=== PATIENT | male | born 1955 | race Two or more races ===

== ENCOUNTER 2018-06-21 05:44 | Emergency (ER) | payer OTHER ==
[2018-06-21 06:00] VITALS: TEMP 98.9; BMI 27.2
[2018-06-21 06:28] LABS: BASO % 0.4 % (0-2.0); EOS % 4.1 % (0-4.5); HEMATOCRIT 42.6 % (35.4-49); HEMOGLOBIN 14.1 GM/dL (11.7-16.9); LYMPH % 31.5 % (8-40); MCH 27.1 pg (25.7-33.7); MCHC 33.1 g/dl (32.0-35.9); MEAN CELL VOLUME 81.8 fl (80-96); MEAN PLT VOLUME 8.4 fl (7.5-11.1); MONO % 11.6 % (3.8-10.2); NEUT % 52.4 % (42.8-82.8); PLATELET COUNT 140 K/MM3 (134-434); RBC 5.21 M/mm3 (4.00-5.60); RDW 15.2 % (11.9-15.9); WHITE BLOOD COUNT 5.1 K/mm3 (4.0-10.0)
[2018-06-21] MEDS ORDERED: ONDANSETRON 4 MG TABLET PO ONE (06:48)
[2018-06-21] MEDS ORDERED: MECLIZINE HCL 25 MG TABLET (FP) PO ONE ×2 (06:48→07:27)
[2018-06-21] MEDS ORDERED: ONDANSETRON *ODT* 4 MG TABLET SL ONE (06:48)
[2018-06-21 06:49] LABS: ALBUMIN 3.5 g/dl (3.4-5.0); ANION GAP 7 MMOL/L (8-16); BILIRUBIN,TOTAL 0.3 mg/dL (0.2-1.0); BLOOD UREA NITROGEN 15 mg/dL (7-18); CALCIUM 8.4 mg/dL (8.5-10.1); CHLORIDE 106 mmol/L (98-107); CO2 27 mmol/L (21-32); GLUCOSE,RANDOM 145 mg/dL (74-106); LIPASE 192 U/L (73-393); POTASSIUM 3.6 mmol/L (3.5-5.1); SGOT/AST 25 U/L (15-37); SGPT/ALT 40 U/L (13-61); SODIUM 140 mmol/L (136-145); TOT PROT 7.4 g/dl (6.4-8.2)
[2018-06-21] MEDS ORDERED: ONDANSETRON *ODT* 4 MG TABLET ONE (06:51)
[2018-06-21 06:52] LABS: ALK PHOS 109 U/L (45-117)
--- NOTE | 2018-06-21 07:11 | PDOC ---
History of Present Illness - General Chief Complaint: Nausea/Vomiting Stated Complaint: NAUSEA;DIZZINESS Time Seen by Provider: 06/21/18 07:09 - History of Present Illness Initial Comments: 06/21/18 07:49 The patient is a 62 year old male with a history of GERD who presents for evaluation of dizziness and nausea. The patient is accompanied by family who assist in providing the history. They note that the patient woke up with severe dizziness and feeling unsteady when walking with associated severe nausea 3 hours prior to presentation to the ED for further evaluation. The patient received meclazine and zofran on arrival to the ED and reports improvement in his symptoms on exam. He denies similar symptoms in the past and otherwise denies fevers, chills, SOB, chest pain, vomiting, abdominal pain, numbness, tingling, weakness, or changes with urination or bowel movements. Past History - Past Medical History Allergies/Adverse Reactions: Allergies Allergy/AdvReac Type Severity Reaction Status Date / Time No Known Allergies Allergy Verified 06/21/18 06:57 Home Medications: Ambulatory Orders Famotidine [Pepcid -] 20 mg PO DAILY #14 tablet 06/21/18 Meclizine HCl [Antivert -] 25 mg PO DAILY PRN #14 tablet 06/21/18 Ondansetron [Zofran Odt -] 4 mg SL TID PRN #21 od.tablet 06/21/18 Ranitidine [Zantac -] 150 mg PO DAILY #14 tablet 06/21/18 COPD: No Other medical history: denies - Suicide/Smoking/Psychosocial Hx Smoking History: Unknown if ever smoked Have you smoked in the past 12 months: No Information on smoking cessation initiated: No Hx Alcohol Use: No Drug/Substance Use Hx: No Review of Systems - Review of Systems Comments:: 06/21/18 07:52 Constitutional: No fevers, chills, fatigue, malaise HEENT: No Rhinorrhea, nasal congestion, visual changes Cardiovascular: No chest pain, syncope, palpitations, lightheadedness Respiratory: No Cough, SOB, Hemoptysis, Gastrointestinal: Nausea. No Abdominal pain, Vomiting, Constipation, Diarrhea, Melena Genitourinary: No Dysuria, Frequency, Urgency, Hesitancy, Hematuria, Flank pain Musculoskeletal: No Myalgia, arthralgia Skin: No rashes, itching, bruising, pallor Neurologic: Dizziness, No Headache, Numbness, Weakness, or Tingling Psychiatric: No Hallucinations. No SI or HI *Physical Exam - Vital Signs Last Vital Signs Temp Pulse Resp BP Pulse Ox 98.9 F 86 20 124/72 99 06/21/18 05:58 06/21/18 05:58 06/21/18 05:58 06/21/18 05:58 06/21/18 05:58 - Physical Exam Comments: 06/21/18 07:52 General Appearance: Nourished. No Apparent Distress HEENT: EOMI, NATALYA. No Pharyngeal Erythema, Tonsillar Exudate, Tonsillar Erythema Neck: No Cervical Lymphadenopathy Respiratory/Chest: Lungs Clear, Normal Breath Sounds. No Crackles, Rales, Rhonchi, Wheezing Cardiovascular: Regular Rhythm, Regular Rate. No Murmur, Gallops, Rubs Gastrointestinal/Abdominal: Normal Bowel Sounds, Soft. No Guarding, Rebound, Tenderness Musculoskeletal: No CVA Tenderness Extremity: Normal Capillary Refill Integumentary: Normal Color, Dry, Warm Neurologic: parquetry floor layer II-XII NML intact, Fully Oriented, Alert, Normal Mood/Affect, Normal Response, Motor Strength 5/5, Normal Finger to nose and heel to de [place] Heart Score/ECG Review #1 ECG reviewed & interpreted by me at: 07:53 General ECG Interpretation: Sinus Rhythm, Normal Rate, Normal Intervals, No acute ischemic changes ED Treatment Course - LABORATORY CBC & Chemistry Diagram: 06/21/18 06:11 06/21/18 06:11 - ADDITIONAL ORDERS Additional order review: Laboratory Results 06/21/18 06:11 Sodium 140 Potassium 3.6 Chloride 106 Carbon Dioxide 27 Anion Gap 7 L BUN 15 Creatinine 1.0 Creat Clearance w eGFR > 60 Random Glucose 145 H Calcium 8.4 L Total Bilirubin 0.3 AST 25 ALT 40 Alkaline Phosphatase 109 Creatine Kinase 138 Troponin I < 0.02 Total Protein 7.4 Albumin 3.5 Lipase 192 06/21/18 06:11 RBC 5.21 MCV 81.8 MCHC 33.1 RDW 15.2 MPV 8.4 Neutrophils % 52.4 Lymphocytes % 31.5 Monocytes % 11.6 H Eosinophils % 4.1 Basophils % 0.4 - Medications Given in the ED: ED Medications Discontinued Medications Generic Name Dose Route Start Last Admin Trade Name Freq PRN Reason Stop Dose Admin Meclizine HCl 25 mg 06/21/18 06:48 06/21/18 06:59 Antivert - PO 06/21/18 06:49 25 mg ONCE ONE Administration Ondansetron HCl 4 mg 06/21/18 06:48 06/21/18 06:59 Zofran - PO 06/21/18 06:49 4 mg ONCE ONE Administration Medical Decision Making - Medical Decision Making 06/21/18 07:58 The patient is a 62 year old male with a history of GERD who presents for evaluation of dizziness and nausea. Differential includes but is not limited to : ACS, Vertigo, Infectious, Metabolic Derangement. Given the patient's history and physical exam, it is likely the patient's symptoms are due to vertigo. However we will obtain a cbc, cmp, troponin, ekg, chest plain film, ua to evaluate further. We will treat with iv fluids, meclazine, pepcid and continue to monitor and reassess while here in the ED. 06/21/18 10:29 CBC, cmp, troponin are unremarkable. Repeat troponin is unremarkable. Chest plain film is unremarkable. UA is unremarkable. The patient reports significant improvement in his symptoms. We are comfortable discharging the patient home with primary care provider follow up on pepcid, zofran, zantac, and meclazine. We discussed the results, plan, and return precautions with the patient who voiced understanding and is agreeable with the plan. *DC/Admit/Observation/Transfer Diagnosis at time of Disposition: Dizziness - Discharge Dispostion Disposition: HOME Condition at time of disposition: Stable Decision to Admit order: No - Prescriptions Prescriptions: Famotidine [Pepcid -] 20 mg PO DAILY #14 tablet Meclizine HCl [Antivert -] 25 mg PO DAILY PRN #14 tablet PRN Reason: Dizziness Ondansetron [Zofran Odt -] 4 mg SL TID PRN #21 od.tablet PRN Reason: Nausea Ranitidine [Zantac -] 150 mg PO DAILY #14 tablet - Referrals Referrals: Hilario Lance [Primary Care Provider] - Leon Moss MD [Staff Physician] - - Patient Instructions Printed Discharge Instructions: DI for Vertigo Additional Instructions: Please return to the ER if you experience concerning or worsening symptoms including worsening difficulty breathing, weakness, or chest pain. Your lab results were normal here in the ER. Please call to schedule a follow up appointment with your primary care provider within 2-3 days to discuss your ER visit and further management of your symptoms. Print Language: THAI - Post Discharge Activity
[2018-06-21] MEDS ORDERED: FAMOTIDINE 20 MG/50 ML IVPB 20 MG/50 ML MG IVPB ONE ×2 (07:18→07:24)
[2018-06-21] MEDS ORDERED: SODIUM CHLORIDE 1,000 ML IV STA (07:18)
[2018-06-21] MEDS ORDERED: MECLIZINE HCL 25 MG TABLET (FP) ONE (07:41)
--- NOTE | 2018-06-21 07:44 | PDOC ---
Attending Attestation - Resident Resident Name: Lane Sutherland - ED Attending Attestation I have performed the following: I have examined & evaluated the patient, The case was reviewed & discussed with the resident, I agree w/resident's findings & plan, Exceptions are as noted - HPI HPI: 06/21/18 08:05 62-year-old male with history of gastritis presents with epigastric pain with nausea and lightheadedness. Patient reported history of eating cake yesterday. With the bed feeling well. Woke up at 4:30 this morning with epigastric dull sensation with nausea. Denied any fevers or chills or diarrhea. Denies chest pain or shortness of breath or dyspnea on exertion. Patient stated that the symptoms made him feel lightheaded and dizzy. Denies headache. Denies prior cardiac history. Patient reports that he suffers from heartburn. - Physicial Exam PE: 06/21/18 08:06 GENERAL: Awake, alert, and fully oriented, in no acute distress HEAD: No signs of trauma EYES: EOMI, sclera anicteric, conjunctiva clear ENT: Auricles normal inspection, hearing grossly normal, Moist mucosa NECK: Normal ROM, suppl LUNGS: Breath sounds equal, clear to auscultation bilaterally. No wheezes, and no crackles HEART: Regular rate and rhythm, normal S1 and S2, no murmurs, rubs or gallops ABDOMEN: Soft, No guarding, no rebound. No masses. TTP epigastric. Silveira sign negative. EXTREMITIES: Normal range of motion, no edema. No clubbing or cyanosis. No cords, erythema, or tenderness NEUROLOGICAL: Cranial nerves II through XII grossly intact. Normal speech, normal gait SKIN: Warm, Dry, normal turgor, no rashes or lesions noted. - Medical Decision Making 06/21/18 08:08 Vital Signs Temp Pulse Resp BP Pulse Ox 98.9 F 86 20 124/72 99 06/21/18 05:58 06/21/18 05:58 06/21/18 05:58 06/21/18 05:58 06/21/18 05:58 I suspect the patient is likely having gastritis. Blood work was examined by me and demonstrates normal liver function tests, normal lipase and normal troponin. EKG is reassuring. I have low suspicion for acute coronary syndrome. We'll trial GERD medications and IV fluids and reassess. We'll obtain a second troponin. If the second troponin is negative the patient reports feeling better , he can be discharged with a proton pump inhibitor and follow up with his primary care physician. 06/21/18 10:10 CBC, BMP 06/21/18 06:11 06/21/18 06:11 CMP Sodium 140 mmol/L (136-145) 06/21/18 06:11 Potassium 3.6 mmol/L (3.5-5.1) 06/21/18 06:11 Chloride 106 mmol/L (98-107) 06/21/18 06:11 Carbon Dioxide 27 mmol/L (21-32) 06/21/18 06:11 Anion Gap 7 MMOL/L (8-16) L 06/21/18 06:11 BUN 15 mg/dL (7-18) 06/21/18 06:11 Creatinine 1.0 mg/dL (0.55-1.3) 06/21/18 06:11 Creat Clearance w eGFR > 60 (>60) 06/21/18 06:11 Random Glucose 145 mg/dL (74-106) H 06/21/18 06:11 Calcium 8.4 mg/dL (8.5-10.1) L 06/21/18 06:11 Total Bilirubin 0.3 mg/dL (0.2-1.0) 06/21/18 06:11 AST 25 U/L (15-37) 06/21/18 06:11 ALT 40 U/L (13-61) 06/21/18 06:11 Alkaline Phosphatase 109 U/L (45-117) 06/21/18 06:11 Creatine Kinase 138 IU/L (26-308) 06/21/18 06:11 Troponin I < 0.02 ng/ml (0.00-0.05) 06/21/18 09:21 Total Protein 7.4 g/dl (6.4-8.2) 06/21/18 06:11 Albumin 3.5 g/dl (3.4-5.0) 06/21/18 06:11 Lipase 192 U/L (73-393) 06/21/18 06:11 Urine Test Results Urine Color Yellow 06/21/18 07:50 Urine Appearance Clear 06/21/18 07:50 Urine pH 6.0 (5.0-8.0) 06/21/18 07:50 Ur Specific [place] 1.019 (1.001-1.035) 06/21/18 07:50 Urine Protein Negative (NEGATIVE) 06/21/18 07:50 Urine Glucose (UA) Negative (NEGATIVE) 06/21/18 07:50 Urine Ketones Negative (NEGATIVE) 06/21/18 07:50 Urine Blood Negative (NEGATIVE) 06/21/18 07:50 Urine Nitrite Negative (NEGATIVE) 06/21/18 07:50 Urine Bilirubin Negative (<2.0 mg/dL) 06/21/18 07:50 Ur Leukocyte Esterase Negative (NEGATIVE) 06/21/18 07:50 Two trop negative. Heart Score/ECG Review #1 ECG reviewed & interpreted by me at: 06:25 06/21/18 07:43 NSR 78, no std/edgardo, normal axis, normal intervals, QTC 433 msec
[2018-06-21 07:58] LABS: URINE APPEARANCE CLEAR; URINE BILIRUBIN NEGATIVE (<2.0 mg/dL); URINE COLOR YELLOW; URINE GLUCOSE (UA) NEGATIVE (NEGATIVE); URINE KETONE NEGATIVE (NEGATIVE); URINE LEUK ESTERASE NEGATIVE (NEGATIVE); URINE NITRITE NEGATIVE (NEGATIVE); URINE PROTEIN NEGATIVE (NEGATIVE); URINE UROBILINOGEN NEGATIVE mg/dL (0.2-1.0)
[2018-06-21 09:30] VITALS: BP 121/78; PULSE 70
--- NOTE | 2018-06-21 21:13 | EKG ---
Test Reason : Blood Pressure : / mmHG Vent. Rate : 078 BPM Atrial Rate : 078 BPM P-R Int : 174 ms QRS Dur : 094 ms QT Int : 380 ms P-R-T Axes : 044 042 036 degrees QTc Int : 433 ms NORMAL SINUS RHYTHM WITH SINUS ARRHYTHMIA NORMAL ECG NO PREVIOUS ECGS AVAILABLE Confirmed by KEITH PRUETT MD ([id number]) on 06/21/2018 9:13:06 PM Referred By: Confirmed By:KEITH PRUETT MD
== END 2018-06-21 10:22 | disposition home or self-care (01) ==
LOC: JER 05:44
PROC: 3E033GC Introduction of Other Therapeutic Substance into Peripheral Vein, Percutaneous Approach (ICD-10-PCS; principal; 2018-06-21)
PROC: 3E0337Z Introduction of Electrolytic and Water Balance Substance into Peripheral Vein, Percutaneous Approach (ICD-10-PCS; 2018-06-21)
DX: R42 Dizziness and giddiness (principal)
CPT/HCPCS: 36415; 71045-TC-FY; 80053; 81003; 82550; 83690; 84484; 85025; 93005; 93010; 96361; 96365; 99284-25; J7030

== ENCOUNTER 2018-11-05 10:46 | Emergency (ER) | payer OTHER ==
[2018-11-05 11:04] VITALS: BP 133/82; PULSE 88; TEMP 98.2; BMI 27.4
[2018-11-05] MEDS ORDERED: ONDANSETRON *ODT* 4 MG TABLET SL ONE (11:56)
[2018-11-05] MEDS ORDERED: IBUPROFEN 400 MG TABLET (FP) PO ONE ×2 (11:56→12:03)
--- NOTE | 2018-11-05 11:56 | PDOC ---
History of Present Illness - General Chief Complaint: Nausea Stated Complaint: COLD SYMPTOMS Time Seen by Provider: 11/05/18 11:24 History Source: Patient Exam Limitations: No Limitations - History of Present Illness Initial Comments: 11/05/18 12:49 Patient is 63-year-old male who presents to the ER for one episode of chills and nausea. Patient states that he felt his body go cold. He also admits to a brief episode of nausea where he didn't want to eat his breakfast. Patient reports relief of symptoms and the emergency department at this time. Denies fevers, chills, sore throat, earache, vomiting, constipation and diarrhea. Past History - Travel Traveled outside of the country in the last 30 days: No Close contact w/someone who was outside of country & ill: No - Past Medical History Allergies/Adverse Reactions: Allergies Allergy/AdvReac Type Severity Reaction Status Date / Time No Known Allergies Allergy Verified 11/05/18 11:01 Home Medications: Ambulatory Orders Ibuprofen 800 mg PO TID #30 tablet 11/05/18 Ondansetron [Zofran Odt -] 4 mg SL TID #10 od.tablet 11/05/18 COPD: No - Suicide/Smoking/Psychosocial Hx Smoking History: Never smoked Have you smoked in the past 12 months: No Hx Alcohol Use: No Drug/Substance Use Hx: No Review of Systems - Review of Systems Able to Perform ROS?: Yes Comments:: 11/05/18 12:52 CONSTITUTIONAL: Present: chills Absent: fever, diaphoresis, generalized weakness, malaise, loss of appetite HEENT: Absent: rhinorrhea, nasal congestion, throat pain, throat swelling, difficulty swallowing, mouth swelling, ear pain, eye pain, visual Changes CARDIOVASCULAR: Absent: chest pain, loss of consciousness, palpitations, irregular heart rate, peripheral edema RESPIRATORY: Absent: cough, shortness of breath, dyspnea with exertion, orthopnea, wheezing, stridor, hemoptysis GASTROINTESTINAL: Present: nausea Absent: abdominal pain, abdominal distension, vomiting, diarrhea , constipation, melena, hematochezia GENITOURINARY: Absent: dysuria, frequency, urgency, hesitancy, hematuria, flank pain, genital pain MUSCULOSKELETAL: Absent: myalgia, arthralgia, joint swelling SKIN: Absent: rash, itching, pallor HEMATOLOGIC/IMMUNOLOGIC: Absent: easy bleeding, easy bruising, lymphadenopathy, frequent infections ENDOCRINE: Absent: unexplained weight gain, unexplained weight loss, heat intolerance, cold intolerance NEUROLOGIC: Absent: headache, focal weakness or paresthesias, dizziness, unsteady gait, seizure, mental status changes, bladder or bowel incontinence PSYCHIATRIC: Absent: anxiety, depression, suicidal or homicidal ideation, hallucinations. Is the patient limited [employer] proficient: No *Physical Exam - Vital Signs Last Vital Signs Temp Pulse Resp BP Pulse Ox 98.2 F 88 16 133/82 100 11/05/18 11:03 11/05/18 11:03 11/05/18 11:03 11/05/18 11:03 11/05/18 11:03 - Physical Exam Comments: 11/05/18 12:52 GENERAL: Well developed, well nourished. Awake and alert. No acute distress. HEENT: Normocephalic, atraumatic. PERRLA, EOMI. No conjunctival pallor. Sclera are non- icteric. Moist mucous membranes. Oropharynx is clear. NECK: Supple. Full ROM. No JVD. Carotid pulses 2+ and symmetric, without bruits. No thyromegaly. No lymphadenopathy. CARDIOVASCULAR: Regular rate and rhythm. No murmurs, rubs, or gallops. Distal pulses are 2+ and symmetric. PULMONARY: No evidence of respiratory distress. Lungs clear to auscultation bilaterally. No wheezing, rales or rhonchi. ABDOMINAL: Soft. Non-tender. Non-distended. No rebound or guarding. No organomegaly. Normoactive bowel sounds. MUSCULOSKELETAL Normal range of motion at all joints. No bony deformities or tenderness. No CVA tenderness. EXTREMITIES: No cyanosis. No clubbing. No edema. No calf tenderness. SKIN: Warm and dry. Normal capillary refill. No rashes. No jaundice. NEUROLOGICAL: Alert, awake, appropriate. Cranial nerves 2-12 intact. No deficits to light touch and temperature in face, upper extremities and lower extremities. No motor deficits in the in face, upper extremities and lower extremities. Normoreflexic in the upper and lower extremities. Normal speech. Toes are down- going bilaterally. Gait is normal without ataxia. PSYCHIATRIC: Cooperative. Good eye contact. Appropriate mood and affect. Moderate Sedation - Procedure Monitoring Vital Signs: Procedure Monitoring Vital Signs Temperature 98.2 F 11/05/18 11:03 Pulse Rate 88 11/05/18 11:03 Respiratory Rate 16 11/05/18 11:03 Blood Pressure 133/82 11/05/18 11:03 O2 Sat by Pulse Oximetry (%) 100 11/05/18 11:03 Medical Decision Making - Medical Decision Making 11/05/18 19:51 Patient is 63-year-old male who presents for one episode of nausea and chills starting this morning. Abdominal exam is benign. Rapid flu ordered given body aches, chills and nausea; it is negative at this time. Zofran given with relief of nausea. Patient reports chills after drinking cold water. Suggested most likely a viral illness and to drink warm supportive fluids to help with his symptoms. Patient's follow up with his primary care doctor. Discharge home I discussed the physical exam findings, ancillary test results and final diagnoses with the patient. I answered all of the patient's questions. The patient was satisfied with the care received and felt comfortable with the discharge plan and treatment plan. The Patient agrees to follow up with the primary care physician/specialist within 24-72 hours. Return precautions were given. *DC/Admit/Observation/Transfer Diagnosis at time of Disposition: Gastroenteritis - Discharge Dispostion Disposition: HOME Condition at time of disposition: Stable Decision to Admit order: No - Prescriptions Prescriptions: Ibuprofen 800 mg PO TID #30 tablet Ondansetron [Zofran Odt -] 4 mg SL TID #10 od.tablet - Referrals Referrals: Fletcher Encinas MD [Staff Physician] - - Patient Instructions Printed Discharge Instructions: DI for Viral Gastroenteritis -- Adult Additional Instructions: You have nausea. Your flu test was negative today Avoid all dairy products until 48 hours after the vomiting/diarrhea has resolved. Eat a bland diet including warm soup, tea, apple sauce, toast, bananas, and plain rice Drink plenty of fluids including pedialyte, watered down juices and water Follow up with your primary care doctor this week Return to the ED if you develop fevers, abdominal pain, worsening vomiting, or if you have any changes in your symptoms. - Post Discharge Activity Forms/Work/School Notes: Back to Work
[2018-11-05] MEDS ORDERED: ONDANSETRON *ODT* 4 MG TABLET ONE (12:04)
== END 2018-11-05 13:01 | disposition home or self-care (01) ==
LOC: JERFT 10:46
DX: K52.9 Noninfective gastroenteritis and colitis, unspecified (principal)
CPT/HCPCS: 87804; 99281-25; Q0162